=== PATIENT | female | born 1950 | race Caucasian/White ===

== ENCOUNTER 2018-09-03 11:24 | Inpatient (IN) | payer MEDICARE, OTHER | END 2018-09-06 12:25 | disposition home or self-care (01) | LOC: ORTHO 4S 09-05 07:15 → PAS IN 11:24 → ORTHO 4S 17:27 | PROC: 0SRD0JZ Replacement of Left Knee Joint with Synthetic Substitute, Open Approach (ICD-10-PCS; principal; 2018-09-03 13:04) | DX: M17.12 Unilateral primary osteoarthritis, left knee (principal); E11.40 Type 2 diabetes mellitus with diabetic neuropathy, unspecified ==

== ENCOUNTER 2018-09-08 18:45 | Inpatient (IN) | payer MEDICARE, OTHER | END 2018-09-11 15:25 | LOC: ER 18:45 → SUR 3N 09-09 04:30 → ORTHO 4S 09-10 11:25 → CICU 2S 09-09 04:35 | DX: E11.649 Type 2 diabetes mellitus with hypoglycemia without coma (principal); N39.0 Urinary tract infection, site not specified ==